=== PATIENT | male | born 1980 | race Caucasian/White ===

== ENCOUNTER 2018-10-24 15:15 | Emergency (ER) | payer OTHER, SELFPAY ==
[2018-10-24 15:18] VITALS: BP 147/82; PULSE 109; RESP 18; TEMP 36.5; O2SAT 96
--- NOTE | 2018-10-24 15:28 | ED.GENADUL_ITS ---
Discharge Plan Disposition Patient Disposition: HOME Condition: Improving Discharge Details Chief Complaint: RespSymp Clinical Impression: Acute bronchitis Primary Care Provider: Michaela Valencia ED Provider: Kan Vincent Home Meds and New Rx's Prescriptions: New azithromycin 250 mg tablet See Rx Instructions .ROUTE .COMPLEX Qty: 6 RF: 0 Robitussin Cough-Chest Car DM 5-100 mg/5 mL liquid 10 ml PO Q6H PRN (Reason: cough) Qty: 237 RF: 0 Continued multivitamin [Daily Multi-Vitamin] 1 EACH tablet 1 tab PO DAILY RF: 0 lisinopril 30 MG tablet 30 mg PO DAILY RF: 0 diclofenac sodium 50 MG tablet,delayed release (DR/EC) 50 mg PO DAILY RF: 0 rosuvastatin [Crestor] 20 MG tablet PO HS RF: 0 benzonatate 100 MG capsule 100 mg PO Q8H PRN (Reason: Cough) Qty: 20 RF: 0 Discharge Instructions Instructions: Acute Bronchitis (ED) Additional Instructions: Continue all regular medications. Return for any acute concerns or if you feel you are worsening. Take Plavix as prescribed. May use the prescribed Robitussin as needed for persistent cough. Medical Decision Making 38-year-old male with 7-10 days of persistent irritative cough. He is not hypoxic or tachycardic at the time of my exam. He has no complaints of chest pain. 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 States he is about to lose his primary care physician. I do feel has bronchitis, cannot differentiate viral versus bacterial. Will treat with a course of azithromycin to cover atypical pathogens as well as increased antitussive regimen at home. He is stable for discharge and understands return precautions to the ED HPI General Mode of arrival: ambulatory . Date/Time Provider Initiated Documentation: 10/24/18 15:21 . Limitations to Documentation: no limitations . Information obtained by: patient . History of Present Illness 38 year old M presents to the emergency department with the chief complaint of Cough times 7- 10 days, described as moderate, Quality is described as aching and dull, and is localized to the chest. Patient reports no radiation. Patient started experiencing this day(s) and it has been intermittent. No relieving factors improve symptom(s), No exacerbating factors reported . Patient notes denies chest pain and shortness of breath. Patient did receive the following treatments prior to arrival, other ([id number] medications, herbal medications, test) Related Data Home Medications Medication Instructions Recorded Confirmed diclofenac sodium 50 mg PO DAILY 07/13/16 01/23/18 lisinopril 30 mg PO DAILY 07/13/16 01/23/18 multivitamin [Daily Multi-Vitamin] 1 tab PO DAILY 07/13/16 01/23/18 rosuvastatin [Crestor] PO HS 07/13/16 benzonatate 100 mg PO Q8H PRN #20 cap 01/23/18 azithromycin See Rx Instructions .ROUTE 10/24/18 .COMPLEX #6 tab dextromethorphan-guaifenesin 10 ml PO Q6H PRN #237 ml 10/24/18 [Robitussin Cough-Chest Car DM] Previous Rx's Medication Instructions Recorded benzonatate 100 mg PO Q8H PRN #20 cap 01/23/18 azithromycin See Rx Instructions .ROUTE 10/24/18 .COMPLEX #6 tab dextromethorphan-guaifenesin 10 ml PO Q6H PRN #237 ml 10/24/18 [Robitussin Cough-Chest Car DM] Allergies Allergy/AdvReac Type Severity Reaction Status Date / Time Latex, Natural Rubber AdvReac Intermediate Skin Rash Unverified 01/23/18 19:35 General Stated Complaint: RespSymp IVONE: 4 Review of Systems Review of Systems No nausea, vomiting, no shortness of breath, no chest pain or palpitations. 8 systems reviewed and otherwise negative [facility] Social History Smoking/Tobacco Use Status: Never Drug use: Occasionally Substance use type: marijuana Do you feel safe at home: Yes Do you feel safe in your relationship?: Yes Exam Narrative Exam Narrative: GEN: awake, alert, oriented 3. Pleasant, well groomed, interactive. HEAD: Normocephalic, atraumatic ENT: Mucous membranes moist, oropharynx unremarkable, External ear exam unremarkable EYES: PERRL, EOMI NECK: Full ROM, no MONIQUE, no menigismus CHEST/RESP: Nontender, clear to auscultation bilateral, no wheeze/rhonchi/rales. Cough noted CARDIOVASCULAR: RRR, no murmur, rub marjorie. 2+ Rad pulse bilateral ABDOMEN: Soft, nontender, no mass. +Bowel sounds EXT: Full ROM, no edema, no rash Neuro: Grossly normal neurologic exam, conversant, interactive. Psych: Speech fluent, thoughts congruent, affect normal Course Vital Signs Temperature 36.5 C 10/24/18 15:18 Pulse 109 H 10/24/18 15:18 Respiratory Rate 18 10/24/18 15:18 Blood Pressure 147/82 H 10/24/18 15:18 Pulse Oximetry 96 10/24/18 15:18 Temperature 36.5 C 10/24/18 15:18 Temperature Source Temporal Artery Scan 10/24/18 15:18 Pulse 109 H 10/24/18 15:18 Respiratory Rate 18 10/24/18 15:18 Respiratory Effort 10/24/18 15:18 Blood Pressure 147/82 H 10/24/18 15:18 Blood Pressure Position Sitting 10/24/18 15:18 Pulse Oximetry 96 10/24/18 15:18 Oxygen Delivery Method Room Air 10/24/18 15:18 Oxygen Flow Rate 0 10/24/18 15:18
== END 2018-10-24 15:36 | disposition home or self-care (01) ==
LOC: ER 15:35
PROVIDERS: Emergency Provider Emergency Medicine; PCP Nurse Practitioner Family
DX: J20.9 Acute bronchitis, unspecified (principal)
CPT/HCPCS: 99283

== ENCOUNTER 2019-02-18 21:10 | Emergency (ER) | payer OTHER, SELFPAY ==
[2019-02-18 21:25] VITALS: BP 113/74; PULSE 98; RESP 18; TEMP 36.6; O2SAT 96
--- NOTE | 2019-02-18 21:48 | ED.GENADUL_ITS ---
Discharge Plan Disposition Patient Disposition: HOME Condition: Good Discharge Details Chief Complaint: Urinary Clinical Impression: Candidal balanitis, Newly diagnosed diabetes Primary Care Provider: Nolan Blanc ED Provider: David Palmer [place] Meds and New Rx's Prescriptions: New clotrimazole 1 % cream 1 applic TP BID Qty: 15 RF: 0 metformin 500 mg tablet 500 mg PO BID Qty: 30 RF: 0 Continued multivitamin [Daily Multi-Vitamin] 1 EACH tablet 1 tab PO DAILY RF: 0 lisinopril 30 MG tablet 30 mg PO DAILY RF: 0 diclofenac sodium 50 MG tablet,delayed release (DR/EC) 50 mg PO DAILY RF: 0 rosuvastatin [Crestor] 20 MG tablet PO HS RF: 0 Discharge Instructions Instructions: Metformin (By mouth), Diabetes Mellitus Type 2 in Adults (ED), Balanitis (ED) Additional Instructions: It is important to pull the foreskin back and clean the area twice a day gently. Apply the topical cream after cleaning. Do this for the next 2-3 weeks and follow-up with primary care. You do have diabetes. You will need close follow-up with your primary care physician. Call today for appointment on Friday. I will start you on metformin for now. Try to avoid excessive sugar intake Return to ED if you develop fever, abdominal pain, vomiting, inability to urinate, testicular pain/swelling, confusion or neurologic changes. Referrals: Nolan Blanc, [employer] [Primary Care Provider] - Medical Decision Making Patient with candidal balanitis. Instructed on good hygiene and will be started on antifungal cream. Denies being diabetic but fingerstick ordered. Patient's fingerstick was almost 400. IV was established and laboratory studies including hemoglobin 1 AC was obtained. Fluids were started. Patient's hemoglobin 1 AC is elevated to 11.6 confirming diabetes. He does not have an anion gap and his bicarb is normal. He will not need admission. I will give him 2 L of fluid. I will start him on metformin 500 mg p.o. twice daily. We will have him follow-up with his primary care on Friday to further evaluate and manage his new diagnosis of diabetes. I have discussed this with the patient who verbalizes understanding and agrees to follow-up. Repeat blood glucose after 2 L of fluid is down to 374 by fingerstick. Patient will be discharged to fill his prescription for metformin in the morning and start taking it. Lab Data Lab results reviewed: Yes I reviewed the patient's lab results. HPI General Mode of arrival: ambulatory . Date/Time Provider Initiated Documentation: 02/18/19 21:35 . Limitations to Documentation: no limitations . Information obtained by: patient . HPI Narrative: Patient presents to ED with complaint of redness and discharge around the head of his penis. He has pain when he urinates but only at the tip of his penis. He denies abdominal pain, flank pain, testicular pain. He notices no swelling. He has no fevers or chills. He denies being diabetic. He denies being sexually active. Related Data Home Medications Medication Instructions Recorded Confirmed diclofenac sodium 50 mg PO DAILY 07/13/16 02/18/19 lisinopril 30 mg PO DAILY 07/13/16 02/18/19 multivitamin [Daily Multi-Vitamin] 1 tab PO DAILY 07/13/16 02/18/19 rosuvastatin [Crestor] PO HS 07/13/16 clotrimazole 1 applic TP BID #15 gm 02/18/19 metformin 500 mg PO BID #30 tab 02/19/19 Previous Rx's Medication Instructions Recorded clotrimazole 1 applic TP BID #15 gm 02/18/19 metformin 500 mg PO BID #30 tab 02/19/19 Allergies Allergy/AdvReac Type Severity Reaction Status Date / Time Latex, Natural Rubber AdvReac Intermediate Skin Rash Unverified 01/23/18 19:35 General Stated Complaint: Urinary IVONE: 4 Review of Systems Review of Systems 05/24 Review of Systems completed and is negative except as stated above in HPI (Systems reviewed: Const, Eyes, ENT, Resp, CV, GI, , MSK, Skin, Neuro) [facility] Medical History HTN (hypertension) (Chronic) Hypercholesterolemia (Acute) Surgical History S/P tonsillectomy (Acute) Social History Smoking/Tobacco Use Status: Never Alcohol Intake: current Alcohol Intake frequency: 0-2 drinks per day Drug use: Occasionally Substance use type: marijuana Do you feel safe at home: Yes Do you feel safe in your relationship?: Yes Exam Narrative Exam Narrative: Vitals: Afebrile with normal vitals. Const: WDWN male in NAD. HEENT: NC/AT. Normal facial exam. Eyes: Normal conjunctiva and sclera. Neck: Supple. Trachea midline. Lungs: Normal respiratory effort. GI: Soft. NT/ND. No guarding or rebound. Back: No CVAT. : Uncircumcised male. With retraction of foreskin patient noted to have significant balanitis with erythema of the glans as well as whitish plaques/discharge. Normal scrotum testicular exam. Neuro: A+O x 3. CN grossly in tact. Good strength and no focal deficit. Ext: No C/C/E. No deformity or tenderness. Skin: Warm and dry without rash. Course Vital Signs Temperature 97.9 F 02/18/19 21:25 Pulse 98 H 02/18/19 21:25 Respiratory Rate 18 02/18/19 21:25 Blood Pressure 113/74 02/18/19 21:25 Pulse Oximetry 96 02/18/19 21:25 Temperature 97.9 F 02/18/19 21:25 Temperature Source Tympanic 02/18/19 21:25 Pulse 98 H 02/18/19 21:25 Respiratory Rate 18 02/18/19 21:25 Blood Pressure 113/74 02/18/19 21:25 Pulse Oximetry 96 02/18/19 21:25 Pain Level 5 02/18/19 21:25 Lab/Test Results Lab/Test Results: Laboratory Tests Range/Units 02/18/19 21:38 Ur Chlamydia DNA Probe Cancelled Chlamydia/GC DNA Source Cancelled Urine GC DNA Probe Cancelled
[2019-02-18] MEDS: Normal Saline 1,000 ML 1000 ML IV (22:41)
[2019-02-18 22:44] LABS: Abs Immature Grans 0.03 k/cumm (0.0-0.09); Absolute Basophil Count 0.03 k/cumm (0.0-0.2); Absolute Eosinophil Count 0.11 k/cumm (0.0-0.7); Absolute Lymphocyte Count 3.99 k/cumm (1.2-3.4); Absolute Monocyte Count 0.77 k/cumm (0.11-0.7); Absolute Neutrophil Count 4.61 k/cumm (1.2-6.7); Basophils % 0.3; Eosinophils % 1.2; HGB 14.8 g/dL (13.5-17.5); Immature Grans % 0.3; Lymphocytes % 41.8; Mean Corp. HGB Concentration 36.1 g/dL (32.0-36.0); Mean Corpuscular Hemoglobin 29.1 pg (27.0-33.0); Mean Corpuscular Volume 80.6 fL (80-95); Mean Platelet Volume 10.8 fL (8.0-11.0); Monocytes % 8.1; Neutrophils % 48.3; Platelet Count 277 x1000/uL (130-400); RBC 5.09 m/cumm (4.50-6.00); RBC Distribution Width 12.1 % (11.8-14.1); White Blood Cell Count 9.54 k/cumm (4.4-10.8)
[2019-02-18 22:57] LABS: Hemoglobin A1C 11.6 % (4.5-6.2)
[2019-02-18 23:16] LABS: ALT 47 U/L (12-78); AST 18 U/L (15-37); Albumin 4.2 g/dL (3.4-5.0); Alkaline Phosphatase 112 U/L (46-116); Anion Gap 11.5 mmol/L (3-11); BUN 28 mg/dL (7-18); Bilirubin, Total 0.4 mg/dL (0.2-1.0); CO2 25.5 mmol/L (21.0-32.0); CREATININE 1.16 mg/dL (0.70-1.30); Calcium 9.7 mg/dL (8.5-10.1); Chloride 97 mmol/L (98-107); Glucose 434 mg/dL (70-100); Magnesium 1.7 mg/dL (1.8-2.4); Potassium 4.4 mmol/L (3.5-5.1); Sodium 134 mmol/L (136-145); Total Protein 8.4 g/dL (6.4-8.2)
[2019-02-18] MEDS: Lactated Ringers 1,000 ML 1000 ML IV (23:39)
[2019-02-19 01:45] VITALS: BP 146/94; PULSE 100; RESP 20; O2SAT 97
== END 2019-02-19 01:21 | disposition home or self-care (01) ==
PROVIDERS: Emergency Provider Emergency Medicine; PCP Nurse Practitioner Family
DX: B37.42 Candidal balanitis (principal); E11.9 Type 2 diabetes mellitus without complications
CPT/HCPCS: 36416; 80053; 82962; 87491; 87591; 96360; 96361; 99283; 83036; 83735; 85025

== ENCOUNTER 2019-05-14 08:19 | Outpatient (REF) | payer OTHER, SELFPAY ==
[2019-05-14 14:23] LABS: ALT 55 U/L (16-63); AST 28 U/L (15-37); Albumin 4.1 g/dL (3.4-5.0); Alkaline Phosphatase 79 U/L (46-116); Anion Gap 10.2 mmol/L (3-11); BUN 23 mg/dL (7-18); Bilirubin, Total 0.4 mg/dL (0.2-1.0); CO2 25.8 mmol/L (21.0-32.0); CREATININE 0.98 mg/dL (0.70-1.30); Calcium 9.4 mg/dL (8.5-10.1); Calculated LDL 70 mg/dL; Chloride 104 mmol/L (98-107); Cholesterol 130 mg/dL (50-200); Glucose 99 mg/dL (70-100); HDL Cholesterol 45 mg/dL (40-60); Potassium 5.5 mmol/L (3.5-5.1); Sodium 140 mmol/L (136-145); Total Protein 7.2 g/dL (6.4-8.2); Triglyceride 76 mg/dL (30-150)
== END 2019-05-14 08:39 ==
LOC: NCHCN 08:19
PROVIDERS: PCP Nurse Practitioner Family; Visit Provider Nurse Practitioner Family
DX: I10 Essential (primary) hypertension (principal); E78.5 Hyperlipidemia, unspecified; R79.89 Other specified abnormal findings of blood chemistry
CPT/HCPCS: 80053; 80061

== ENCOUNTER 2020-02-10 22:56 | Outpatient (REF) | payer OTHER, SELFPAY ==
[2020-02-10 18:37] LABS: COMMENT (LAB VIEW ONLY) 35.81 mg/dL; Microalb ug/mg Crea 19.3 ug/mg Cr
== END 2020-02-10 23:16 ==
LOC: NCHCN 22:56
PROVIDERS: PCP Nurse Practitioner Family; Visit Provider Nurse Practitioner
DX: E11.9 Type 2 diabetes mellitus without complications (principal)
CPT/HCPCS: 82043; 82570

== ENCOUNTER 2020-05-16 14:05 | Outpatient (REF) | payer OTHER, SELFPAY ==
[2020-05-16 18:50] LABS: Hemoglobin A1C 6.3 % (<5.7)
== END 2020-05-16 14:25 ==
LOC: NCHCN 14:05
PROVIDERS: PCP Nurse Practitioner Family; Visit Provider Nurse Practitioner Family
DX: E11.9 Type 2 diabetes mellitus without complications (principal)
CPT/HCPCS: 83036

== ENCOUNTER 2021-02-13 07:47 | Outpatient (REF) | payer OTHER, SELFPAY ==
[2021-02-13 21:57] LABS: HCT 40.1 % (40.0-50.0); HGB 13.1 g/dL (13.5-17.5); MCHC 32.7 % (32.0-36.0); MCV 88.9 fL (80-95); MPV 11.5 fL (8.0-11.0); Platelet Count 245 10^3/uL (130-400); RBC 4.51 10^6/uL (4.36-5.78); RDW 11.8 % (11.8-14.1); RDW-SD 38.5 fL; WBC 8.13 10^3/uL (4.4-10.8)
[2021-02-13 22:11] LABS: Hemoglobin A1C 7.3 % (<5.7)
[2021-02-13 22:17] LABS: Anion Gap 12.5 mmol/L (3-11); BUN 17 mg/dL (7-18); CO2 22.5 mmol/L (21.0-32.0); CREATININE 1.1 mg/dL (0.70-1.30); Calcium 9.1 mg/dL (8.5-10.1); Calculated LDL 48 mg/dL (<100); Chloride 104 mmol/L (98-107); Cholesterol 146 mg/dL (<200); Glucose 266 mg/dL (74-106); HDL Cholesterol 42 mg/dL (40-60); Sodium 139 mmol/L (136-145); Triglyceride 281 mg/dL (<150)
== END 2021-02-13 07:48 | disposition home or self-care (01) ==
LOC: NCHCN 07:47
PROVIDERS: PCP Nurse Practitioner Family; Visit Provider Nurse Practitioner Family
DX: I10 Essential (primary) hypertension (principal); E78.5 Hyperlipidemia, unspecified; E11.9 Type 2 diabetes mellitus without complications
CPT/HCPCS: 80048; 80061; 85027; 83036

== ENCOUNTER 2021-08-17 16:34 | Outpatient (REF) | payer OTHER, SELFPAY ==
[2021-08-19 19:37] LABS: COVID-19 RT-PCR UVMMC Result Negative (Negative)
== END 2021-08-17 16:35 | disposition home or self-care (01) ==
LOC: LBN 16:34
PROVIDERS: PCP Nurse Practitioner Family; Visit Provider Physician Assistant Medical
DX: Z20.822 Contact with and (suspected) exposure to COVID-19 (principal); R05.8 Other specified cough
CPT/HCPCS: U0003

== ENCOUNTER 2021-10-02 15:12 | Outpatient (REF) | payer OTHER, SELFPAY ==
[2021-10-02 20:24] LABS: HCT 41.2 % (40.0-50.0); HGB 13.4 g/dL (13.5-17.5); MCH 28.7 pg (27.0-33.0); MCHC 32.5 % (32.0-36.0); MCV 88.2 fL (80-95); MPV 10.9 fL (8.0-11.0); Platelet Count 271 10^3/uL (130-400); RBC 4.67 10^6/uL (4.36-5.78); RDW 11.5 % (11.8-14.1); RDW-SD 36.9 fL; WBC 9.64 10^3/uL (4.4-10.8)
[2021-10-02 20:39] LABS: ALT 63 U/L (16-63); AST 29 U/L (15-37); Albumin 4.3 g/dL (3.4-5.0); Alkaline Phosphatase 76 U/L (46-116); BUN 22 mg/dL (7-18); Bilirubin, Total 0.3 mg/dL (0.2-1.0); CREATININE 1.1 mg/dL (0.70-1.30); Calcium 9.7 mg/dL (8.5-10.1); Chloride 102 mmol/L (98-107); Glucose 189 mg/dL (74-106); Potassium 4.5 mmol/L (3.5-5.1); Sodium 140 mmol/L (136-145); Total Protein 7.7 g/dL (6.4-8.2)
== END 2021-10-02 15:13 | disposition home or self-care (01) ==
LOC: LBN 15:12
PROVIDERS: PCP Nurse Practitioner Family; Visit Provider Nurse Practitioner Family
DX: E11.9 Type 2 diabetes mellitus without complications (principal); Z00.00 Encounter for general adult medical examination without abnormal findings; I10 Essential (primary) hypertension; E78.5 Hyperlipidemia, unspecified
CPT/HCPCS: 80053; 85027

== ENCOUNTER 2022-04-26 13:31 | Outpatient (REF) | payer OTHER, SELFPAY ==
[2022-04-26 13:25] LABS: Anion Gap 11.2 mmol/L (3-11); BUN 30 mg/dL (7-18); CO2 21.8 mmol/L (21.0-32.0); CREATININE 1.1 mg/dL (0.70-1.30); Calcium 9.8 mg/dL (8.5-10.1); Chloride 103 mmol/L (98-107); Estimated GFR 85.95 (mL/min/1.73m2); Glucose 161 mg/dL (74-106); Potassium 5.1 mmol/L (3.5-5.1); Sodium 136 mmol/L (136-145)
== END 2022-04-26 13:32 | disposition home or self-care (01) ==
LOC: NCHCN 13:31
PROVIDERS: Visit Provider Nurse Practitioner Family
DX: E11.9 Type 2 diabetes mellitus without complications (principal)
CPT/HCPCS: 80048

== ENCOUNTER 2023-02-28 14:08 | Outpatient (REF) | payer OTHER, SELFPAY ==
[2023-02-28 15:57] LABS: COMMENT (LAB VIEW ONLY) 22.36 mg/dL; Microalb ug/mg Crea 66.6 ug/mg Cr
== END 2023-02-28 14:09 | disposition home or self-care (01) ==
LOC: NCHCN 14:08
PROVIDERS: PCP Physician Assistant; Visit Provider Physician Assistant
DX: E11.9 Type 2 diabetes mellitus without complications (principal)
CPT/HCPCS: 82043; 82570

== ENCOUNTER 2023-07-14 10:05 | Outpatient (REF) | payer OTHER, SELFPAY ==
[2023-07-14 15:10] LABS: ALT 61 U/L (16-63); AST 21 U/L (15-37); Alkaline Phosphatase 93 U/L (46-116); Anion Gap 10.1 mmol/L (3-11); BUN 25 mg/dL (7-18); Bilirubin, Total 0.4 mg/dL (0.2-1.0); CO2 23.9 mmol/L (21.0-32.0); CREATININE 1.2 mg/dL (0.70-1.30); Calcium 9.5 mg/dL (8.5-10.1); Calculated LDL 103 mg/dL (<100); Chloride 104 mmol/L (98-107); Cholesterol 172 mg/dL (<200); Estimated GFR 76.95 (mL/min/1.73m2); Glucose 233 mg/dL (74-106); HDL Cholesterol 44 mg/dL (40-60); Potassium 5.3 mmol/L (3.5-5.1); Sodium 138 mmol/L (136-145); Triglyceride 129 mg/dL (<150)
== END 2023-07-14 10:06 | disposition home or self-care (01) ==
LOC: NCHCN 10:05
PROVIDERS: PCP Physician Assistant; Visit Provider Physician Assistant
DX: I10 Essential (primary) hypertension (principal); E11.9 Type 2 diabetes mellitus without complications; E78.5 Hyperlipidemia, unspecified
CPT/HCPCS: 80053; 80061; 83036

== ENCOUNTER 2023-07-23 11:23 | Outpatient (REF) | payer OTHER, SELFPAY ==
[2023-07-23 20:25] LABS: ALT 45 U/L (16-63); AST 25 U/L (15-37); Albumin 4.2 g/dL (3.4-5.0); Alkaline Phosphatase 103 U/L (46-116); Anion Gap 14.4 mmol/L (3-11); BUN 26 mg/dL (7-18); Bilirubin, Total 0.5 mg/dL (0.2-1.0); CO2 21.6 mmol/L (21.0-32.0); CREATININE 1.2 mg/dL (0.70-1.30); Calcium 9.8 mg/dL (8.5-10.1); Calculated LDL 94 mg/dL (<100); Chloride 101 mmol/L (98-107); Cholesterol 176 mg/dL (<200); Estimated GFR 76.95 (mL/min/1.73m2); Glucose 295 mg/dL (74-106); HDL Cholesterol 49 mg/dL (40-60); Potassium 5.1 mmol/L (3.5-5.1); Sodium 137 mmol/L (136-145); Total Protein 7.9 g/dL (6.4-8.2); Triglyceride 166 mg/dL (<150)
[2023-07-23 20:29] LABS: Hemoglobin A1C 9.1 % (<5.7)
== END 2023-07-23 11:24 | disposition home or self-care (01) ==
LOC: NCHCN 11:23
PROVIDERS: PCP Physician Assistant; Visit Provider Physician Assistant
DX: I10 Essential (primary) hypertension (principal); E78.5 Hyperlipidemia, unspecified; E11.9 Type 2 diabetes mellitus without complications
CPT/HCPCS: 80053; 80061; 83036

== ENCOUNTER 2024-08-24 09:31 | Outpatient (REF) | payer MEDICAID, SELFPAY ==
[2024-08-24 16:29] LABS: ALT 71 U/L (16-63); AST 35 U/L (15-37); Albumin 4.1 g/dL (3.4-5.0); Alkaline Phosphatase 84 U/L (46-116); Anion Gap 11.2 mmol/L (3-11); BUN 30 mg/dL (7-18); Bilirubin, Total 0.39 mg/dL (0.2-1.0); CO2 21.8 mmol/L (21.0-32.0); CREATININE 1.5 mg/dL (0.70-1.30); Calcium 9.3 mg/dL (8.5-10.1); Calculated LDL 55 mg/dL (<100); Chloride 105 mmol/L (98-107); Cholesterol 132 mg/dL (<200); Estimated GFR 58.15 (mL/min/1.73m2); Glucose 229 mg/dL (74-106); HDL Cholesterol 46 mg/dL (40-60); Potassium 5.4 mmol/L (3.5-5.1); Sodium 138 mmol/L (136-145); Total Protein 7.1 g/dL (6.4-8.2); Triglyceride 155 mg/dL (<150)
[2024-08-24 16:40] LABS: Hemoglobin A1C 7.6 % (<5.7)
[2024-08-24 17:46] LABS: COMMENT (LAB VIEW ONLY) 74.32 mg/dL; Microalb ug/mg Crea 34.7 ug/mg Cr
== END 2024-08-24 09:32 | disposition home or self-care (01) ==
LOC: NCHCN 09:31
PROVIDERS: PCP Physician Assistant; Visit Provider Physician Assistant
DX: E11.9 Type 2 diabetes mellitus without complications (principal)
CPT/HCPCS: 80053; 80061; 82043; 82570; 83036

== ENCOUNTER 2024-12-08 09:13 | Outpatient (REF) | payer MEDICAID, SELFPAY ==
[2024-12-08 17:06] LABS: Anion Gap 16.2 mmol/L (3-11); BUN 22 mg/dL (7-18); CO2 16.8 mmol/L (21.0-32.0); CREATININE 1.3 mg/dL (0.70-1.30); Chloride 103 mmol/L (98-107); Estimated GFR 69.04 (mL/min/1.73m2); Glucose 266 mg/dL (74-106); Potassium 5.8 mmol/L (3.5-5.1); Sodium 136 mmol/L (136-145)
[2024-12-08 17:39] LABS: Hemoglobin A1C 8.8 % (<5.7)
== END 2024-12-08 09:14 | disposition home or self-care (01) ==
LOC: NCHCN 09:13
PROVIDERS: PCP Physician Assistant; Visit Provider Physician Assistant
DX: E11.8 Type 2 diabetes mellitus with unspecified complications (principal)
CPT/HCPCS: 80048; 83036

== ENCOUNTER 2024-12-20 14:57 | Emergency (ER) | payer MEDICAID, SELFPAY ==
[2024-12-20 15:01] VITALS: BP 159/74; PULSE 96; RESP 18; TEMP 36.6; O2SAT 98
[2024-12-20 15:04] VITALS: BP 159/74; PULSE 96; RESP 18; TEMP 36.6; O2SAT 98
--- NOTE | 2024-12-20 15:11 | W.ED.GENAD ---
Discharge Plan Disposition Patient Disposition: Home Condition: Stable Discharge Details Clinical Impression: Pneumonia Primary Care Provider: Luis Alberto Amaya ED Provider: Alkes Cartwright Home Meds and New Rx's Prescriptions: New amoxicillin-pot clavulanate 875-125 mg tablet 1 tab PO BID 5 Days Qty: 10 0RF azithromycin 250 mg tablet See Rx Instructions .ROUTE .COMPLEX Qty: 6 0RF Rx Instructions: For 250 mg dose pack: take 500 mg today (day 1), then 250 mg for 4 days (days 2-5) Continued glimepiride 4 mg tablet 4 mg PO DAILY multivitamin [Daily Multi-Vitamin] 1 EACH tablet 1 tab PO DAILY lisinopril 30 MG tablet 30 mg PO DAILY diclofenac sodium 50 MG tablet,delayed release (DR/EC) 50 mg PO DAILY rosuvastatin [Crestor] 20 MG tablet 20 mg PO HS clotrimazole 1 % cream 1 applic TP BID Qty: 15 0RF metformin 500 mg tablet 500 mg PO BID Qty: 30 0RF Discharge Instructions Instructions: Azithromycin (Systemic), Amoxicillin and Clavulanate, Pneumonia, Adult ED Additional Instructions: You were seen in the emergency department for your worsening cough over the past 2 weeks, your chest shows a possible developing right lobe pneumonia. I have prescribed you 2 different antibiotics, Augmentin and azithromycin to treat your pneumonia, take these as directed, please use therapeutic dosing of Tylenol (acetamenophen) & Advil (ibuprofen) in an alternating fashion as follows: Take 1000mg of Tylenol every 6 hours without missing doses- that is 4 times per day. Care Home in between the Tylenol dosings, take 400-600mg of Advil also on a 6 hour schedule, that is also 4 times per day. The daily maximum dosing of Tylenol is 4000mg, and the daily maximum dosing of Advil is 2400mg. This is safe to do for weeks. Please note that some common cold medications & prescription pain medications may contain acetamenophen and you need to read OTC drug labels and factor that in to maximum daily dosings. Return to the emergency department for any severe worsening respiratory distress, high fevers not responding to Tylenol or ibuprofen. Stand Alone Forms: Work Release Referrals: Luis Alberto Amaya [Primary Care Provider] - HPI General Date/Time Provider Initiated Documentation: 12/20/24 14:59. HPI Narrative: 44 year-old male presents to ED today by POV/ambulating with a chief complaint of cough for the past two weeks, one episode of vomiting days ago. Quality described as productive cough, congestion, runny nose, no radiation to fever, intractable nausea/vomiting, chest pain, shortness of breath, profound fatigue. Severity is described as moderate. Palliating factors include nothing specific attempted. Provoking factors include nothing specific. Events leading up to the incident/Associated Symptoms: Patient tested negative for Covid/Flu at [facility] last week on rapid antigen. Patient not anticoagulated. Related Data Home Medications ?Medication ?Instructions ?Recorded ?Confirmed diclofenac sodium 50 mg 50 mg PO DAILY 07/13/16 12/20/24 tablet,delayed release lisinopril 30 mg tablet 30 mg PO DAILY 07/13/16 12/20/24 multivitamin (Daily Multi-Vitamin 1 tab PO DAILY 07/13/16 12/20/24 tablet) rosuvastatin 20 mg tablet (Crestor) 20 mg PO HS 07/13/16 12/20/24 clotrimazole 1 % topical cream 1 applic topical BID #15 grams 02/18/19 12/20/24 metformin 500 mg tablet 500 mg PO BID #30 tabs 02/19/19 12/20/24 glimepiride 4 mg tablet 4 mg PO DAILY 12/14/24 12/20/24 amoxicillin 875 mg-potassium 1 tab PO BID pneumonia 5 days #10 12/20/24 clavulanate 125 mg tablet tabs azithromycin 250 mg tablet See Rx Instructions PO .COMPLEX #6 12/20/24 tabs Previous Rx's ?Medication ?Instructions ?Recorded clotrimazole 1 % topical cream 1 applic topical BID #15 grams 02/18/19 metformin 500 mg tablet 500 mg PO BID #30 tabs 02/19/19 amoxicillin 875 mg-potassium 1 tab PO BID pneumonia 5 days #10 12/20/24 clavulanate 125 mg tablet tabs azithromycin 250 mg tablet See Rx Instructions PO .COMPLEX #6 12/20/24 tabs Allergies Allergy/AdvReac Type Severity Reaction Status Date / Time Latex, Natural Rubber AdvReac Intermediate Skin Rash Unverified 12/20/24 15:03 General Stated Complaint: RespSymp IVONE: 4 Review of Systems All systems reviewed & are unremarkable except as noted in HPI and below Exam Narrative Exam Narrative: GENERAL APPEARANCE: Well-nourished, non-toxic, awake and alert, atraumatic, no acute distress. SKIN: Warm, pink, dry, intact, without rashes/lesions/ulcerations. HEAD: Normocephalic, atraumatic, normal hair distribution for gender/age. EYES: Normal conjunctiva, no exudates on lids/lashes. ENT: Nares patent, no circumoral cyanosis, no facial swelling NECK: Supple, trachea midline, painless cervical ROM. LUNGS/CHEST: Lungs - diminished R base, non-labored respirations, normal A/P diameter, symmetrical expansion, no chest wall deformity HEART (CV/PV): Regular rate and rhythm without murmur, no peripheral edema, no JVD. ABDOMEN: Soft, non-distended, no guarding, no tenderness. MSK: Normal ROM, no swelling/deformity to bilateral UEs or LEs, moving all extremities without weakness, no cyanosis, spine midline without tenderness, normal curvature. NEURO: Mental Status AAOx4 - alert to person, place, time, events No facial droop, no forehead involvement. Motor: No focal weakness - strength 5/5 in bilateral UEs and LEs, proximal and distal, symmetric. Sensory: sensation intact to light touch globally. Gait normal: patient ambulated without ataxia into ED room. PSYCH: euthymic, cooperative, pleasant, appropriate speech Course Vital Signs Vital signs: Vital Signs Temperature 36.6 C 12/20/24 15:01 Pulse 96 H 12/20/24 15:01 Respiratory Rate 18 12/20/24 15:01 Blood Pressure 159/74 H 12/20/24 15:01 Pulse Oximetry 98 12/20/24 15:01 Temperature 36.6 C 12/20/24 15:04 Pulse 96 H 12/20/24 15:04 Respiratory Rate 18 12/20/24 15:04 Blood Pressure 159/74 H 12/20/24 15:04 Blood Pressure Position Sitting 12/20/24 15:04 Pulse Oximetry 98 12/20/24 15:04 Pain Level 0 12/20/24 15:04 Medical Decision Making This dictation utilizes [id number] dictation software and may contain unedited grammatical errors. 44 year-old male presents to ED today by POV/ambulating with a chief complaint of cough for the past two weeks, one episode of vomiting days ago. Quality described as productive cough, congestion, runny nose, no radiation to fever, intractable nausea/vomiting, chest pain, shortness of breath, profound fatigue. Severity is described as moderate. Palliating factors include nothing specific attempted. Provoking factors include nothing specific. Events leading up to the incident/Associated Symptoms: Patient tested negative for Covid/Flu at [facility] last week on rapid antigen. Patients' medical history: Hypertension, T2DM. Family and social history: Noncontributory. Pertinent exam findings / vital signs include slightly diminished right base, otherwise benign cardiac exam, benign abdomen, nontoxic. Differential / pathologies of concern include pneumonia, bronchitis, bacterial URI, viral syndrome. Diagnostic studies of: -XR Chest, Covid/Flu/RSV PCR swab. -XR shows developing R lobe infiltrate, treating for PNA w/ 2 weeks onset -Covid/Flu/RSV negative Interventions of: -Rx for Augmentin/Azithro. ED Course/Assessment/Plan: 44-year-old male presents with 2 weeks of worsening cough, was dry at first nonproductive, x-ray shows some developing infiltrate in the right lower and middle lobe lobe, treating for pneumonia with dual antibiotic therapy due to the patient's comorbidity of diabetes, COVID/flu/RSV negative, counseled on therapeutic dosing of Tylenol and ibuprofen Findings not consistent with respiratory failure or distress, abdominal pathology, sepsis. Disposition of pneumonia. Patient verbalized understanding of the plan and return to ED criteria and engaged in shared decision making. Medical Records Medical records reviewed: Yes I reviewed the patient's medical records. Imaging Data Radiologic Study: Attestation: I personally reviewed and interpreted this imaging study as follows: Imaging: X-Ray Radiologist's impression: EXAM: XR CHEST 2V PA LATERAL CLINICAL HISTORY: cough x 2 weeks. TECHNIQUE: 2D digital imaging was performed. COMPARISON: CR CHEST 2 VIEWS PA,LAT from 01/23/2018 FINDINGS: 2 views: Heart size is normal. The mediastinum is not widened. Left lung is clear. There is a small area of increased markings in the lower right lung field, possibly mild infiltrate; seen only on the frontal view. There are no pleural effusions. IMPRESSION: Mildly increased focal markings in the mid-lower right lung which were not evident on images of 2018. May represent mild area of infiltrate. Appropriate follow-up recommended. Lab Data Lab results reviewed: Yes I reviewed the patient's lab results. Labs: Laboratory Tests Range/Units 12/20/24 15:23 COVID-19 Source Nasopharynx SARS-CoV-2 (PCR) (Negative) Negative Influenza Type A (PCR) (Negative) Negative Influenza Type B (PCR) (Negative) Negative RSV (PCR) (Negative) Negative Quality:SDOH Health Related Social Needs: No Data to Display PFSH All Active Problems (Updated 12/20/24 @ 16:08 by GWENDOLYN Merida) Pneumonia (Acute) Type 2 diabetes mellitus (Acute) Medical History (Updated 12/20/24 @ 16:08 by GWENDOLYN Merida) Adjustment disorder with mixed anxiety and depressed mood Hypercholesterolemia HTN (hypertension) Surgical History S/P tonsillectomy Social History Smoking/Tobacco Use Status: Never Smoking risk assessment performed?: Yes Alcohol Intake: current Alcohol Intake frequency: 0-2 drinks per day Drug use: Occasionally Substance use type: marijuana Do you feel safe at home: Yes Do you feel safe in your relationship?: Yes PAWSS Have you Been Recently Intoxicated or Drunk Within the Last 30 days?: No Have you Ever Experienced Previous Episodes of Alcohol Withdrawal?: No Have you ever Experienced Withdrawal Seizures?: No Have you ever Experienced Delirium Tremens(DT)s?: No Have you ever undergone Alcohol Rehabilitation Treatment (i.e, inpt ot outpatient treatment programs)?: No Have you ever Experienced Blackouts?: No Have you ever Combined Alcohol with other Downers within the last 90 days?: No Have you ever Combined Alcohol with any other Substance of Abuse during the last 90 days?: No Positive Blood Alcohol level on Presentation? [PCS.BAL]: No Evidence of Increased Autonomic Activity (i.e. HR>120, tremor, sweating, agitation, nausea)?: No Result: 0
--- NOTE | 2024-12-20 15:15 | DI.RAD_ITS ---
Exam(s) XR CHEST 2V PA LATERAL EXAM: XR CHEST 2V PA LATERAL CLINICAL HISTORY: cough x 2 weeks. TECHNIQUE: 2D digital imaging was performed. COMPARISON: CR CHEST 2 VIEWS PA,LAT from 01/23/2018 FINDINGS: 2 views: Heart size is normal. The mediastinum is not widened. Left lung is clear. There is a small area of increased markings in the lower right lung field, possi elenita mild infiltrate; seen only on the frontal view. There are no pleural effusions. IMPRESSION: Mildly increased focal markings in the mid-lower right lung which were not evident on images of 2018. May represent mild area of infiltrate. Appropriate follow-up recommended. DATA REPOSITORY: RADIATION DOSE DELIVERED:
[2024-12-20 16:06] LABS: COVID-19 PCR Negative (Negative); Influenza A PCR Negative (Negative); Influenza B PCR Negative (Negative); RSV PCR Negative (Negative)
[2024-12-20 16:09] LABS: Source Nasopharynx
[2024-12-20 16:33] VITALS: BP 129/79; PULSE 88; RESP 16; O2SAT 97
== END 2024-12-20 16:42 | disposition home or self-care (01) ==
PROVIDERS: Emergency Provider Physician Assistant; PCP Physician Assistant
DX: J18.9 Pneumonia, unspecified organism (principal)
CPT/HCPCS: 99283; 99284; 87637; 71046

== ENCOUNTER 2025-01-04 12:20 | Outpatient (CLI) | payer MEDICAID, SELFPAY ==
--- NOTE | 2025-01-04 11:50 | DI.RAD_ITS ---
Exam(s) XR CHEST 2V PA LATERAL EXAM: XR CHEST 2V PA LATERAL CLINICAL HISTORY: ACUTE COUGH R05.1 NEW ONSET 4 DAYS AGO, RECENT RT SIDED INFILTRATE 2 WEEKS. TECHNIQUE: 2D digital imaging was performed. COMPARISON: CR CHEST 2 VIEWS PA,LAT from 01/23/2018 CR XR CHEST 2V PA LATERAL from 12/20/2024 FINDINGS: 2 views: Heart size is normal. The mediastinum is not widened. Left lung remains clear. Mild increased markings in the medial right lung base again noted. There i s possibly that these are vascular markings as opposed to true infiltrate; or possibly a subtle combi nation of both. There are no pleural effusions. IMPRESSION: As above. If clinically indicated follow-up CT scan can be performed for added sensitivity and speci ficity to determine if there is truly infiltrate here in the right lung base. DATA REPOSITORY: RADIATION DOSE DELIVERED:
== END 2025-01-04 12:40 ==
LOC: DI 12:20
PROVIDERS: PCP Physician Assistant; Visit Provider Nurse Practitioner Family
DX: R05.1 Acute cough (principal); R91.8 Other nonspecific abnormal finding of lung field
CPT/HCPCS: 71046